=== PATIENT | male | born 1965 ===

== ENCOUNTER 2018-03-18 10:18 | Emergency (ER) | payer OTHER ==
--- NOTE | 2018-03-18 10:54 | C.PDOC ---
History Of Present Illness 53-year-old male, presents to the emergency department requesting detox for Heroin. Denies SI/HI. Time Seen by Provider: 03/18/18 10:46 Chief Complaint (Nursing): Substance Abuse History Per: Patient History/Exam Limitations: no limitations Modifying Factor(s): Narcotics Severity: Mild Past Medical History Reviewed: Historical Data, Nursing Documentation, Vital Signs Vital Signs: Last Vital Signs Temp 99.2 F 03/18/18 11:17 Pulse 74 03/18/18 11:17 Resp 20 03/18/18 11:17 BP 120/83 03/18/18 11:17 Pulse Ox 96 03/18/18 11:17 - Medical History PMH: No Chronic Diseases Surgical History: No Surg Hx Family History: States: No Known Family Hx - Social History Hx Alcohol Use: No Hx Substance Use: Yes - Immunization History Hx Tetanus Toxoid Vaccination: Yes Review Of Systems Constitutional: Negative for: Fever Cardiovascular: Negative for: Chest Pain Respiratory: Negative for: Shortness of Breath Gastrointestinal: Negative for: Nausea, Vomiting Musculoskeletal: Negative for: Back Pain Physical Exam - Physical Exam Appears: Non-toxic, No Acute Distress Skin: Warm, Dry, No Rash Head: Atraumatic Eye(s): bilateral: Normal Inspection Nose: Normal Oral Mucosa: Moist Lips: Normal Appearing Neck: Normal ROM Cardiovascular: Rhythm Regular, No Murmur Respiratory: Normal Breath Sounds, No Accessory Muscle Use Extremity: Normal ROM, No Deformity Neurological/Psych: Oriented x3, Normal Speech ED Course And Treatment O2 Sat by Pulse Oximetry: 98 Progress Note: Case discussed with emergency worker who informed patient there were no available beds in Detox. Patient was provided with list of outpatient serves to follow up with. also patient was placed on waiting list for detox bed. Discharged in stable condition Reassessment Condition: Unchanged Medical Decision Making Medical Decision Making: Patient evaluated by crisis. There are no male detox beds available. Pt will be educated on pre-screening process, and placed on waiting list. He was given a list of other detox facilities. All questions answered. Disposition Counseled Patient/Family Regarding: Diagnosis, Need For Followup - Disposition Referrals: [facility] [Outside] [facility] [Outside] [facility] [Outside] [facility] [Outside] Disposition: HOME/ ROUTINE Disposition Time: 11:00 Condition: STABLE Additional Instructions: Follow up with outpatient services for further evaluation Instructions: Drug Abuse and Drug Addiction (DC), Opioid Use Disorder Forms: [facility] (Burkinan) - POA Present On Arrival: None - Clinical Impression Clinical Impression: Drug abuse, Drug dependence - Scribe Statement The provider has reviewed the documentation as recorded by the Scribe (Marylou Dubon) All medical record entries made by the Scribe were at my direction and personally dictated by me. I have reviewed the chart and agree that the record accurately reflects my personal performance of the history, physical exam, medical decision making, and the department course for this patient. I have also personally directed, reviewed, and agree with the discharge instructions and disposition.
[2018-03-18 11:18] VITALS: BP 120/83; PULSE 74; RESP 20; TEMP 99.2
[2018-03-18 16:58] VITALS: O2SAT 98
== END 2018-03-18 11:18 | disposition home or self-care (01) ==
LOC: C.ER 10:18
DX: F19.20 Other psychoactive substance dependence, uncomplicated (principal)

== ENCOUNTER 2018-04-01 07:22 | Emergency (ER) | payer SELFPAY ==
[2018-04-01 07:27] VITALS: BP 126/84; PULSE 90; RESP 18; TEMP 98.1; O2SAT 100
[2018-04-01] MEDS ORDERED: Tmp-Smz 800 mg-160 mg DS Tab PO STA (08:02)
--- NOTE | 2018-04-01 08:07 | C.PDOC ---
History Of Present Illness 53 y/o male with history of IVDA presents to ED with c/o abscess to right forearm for 6 days. Patient state area opened and drained prior to arrival and reports last drug use was 5 days ago. Patient denies fever, chills or any other complaints at this time. Time Seen by Provider: 04/01/18 07:29 Chief Complaint (Nursing): Abnormal Skin Integrity History Per: Patient History/Exam Limitations: no limitations Onset/Duration Of Symptoms: Days Current Symptoms Are (Timing): Still Present Past Medical History Reviewed: Historical Data, Nursing Documentation, Vital Signs Vital Signs: Last Vital Signs Temp 98.1 F 04/01/18 07:25 Pulse 90 04/01/18 07:25 Resp 18 04/01/18 07:25 BP 126/84 04/01/18 07:25 Pulse Ox 100 04/01/18 16:42 - Medical History PMH: No Chronic Diseases Surgical History: No Surg Hx Family History: States: No Known Family Hx - Social History Hx Alcohol Use: No Hx Substance Use: Yes - Immunization History Hx Tetanus Toxoid Vaccination: Yes Review Of Systems Constitutional: Negative for: Fever, Chills Gastrointestinal: Negative for: Nausea, Vomiting Skin: Positive for: Other (abscess) Physical Exam - Physical Exam Appears: Non-toxic, No Acute Distress Skin: Warm, Dry, Other (redness area to right forearm, draining serial sanguenous ) Head: Atraumatic, Normacephalic Eye(s): bilateral: Normal Inspection Oral Mucosa: Moist Cardiovascular: Rhythm Regular Respiratory: Normal Breath Sounds, No Rales, No Rhonchi, No Wheezing Extremity: Normal ROM, Capillary Refill (<2 seconds), No Deformity Neurological/Psych: Oriented x3, Normal Speech, Normal Cognition Gait: Steady ED Course And Treatment O2 Sat by Pulse Oximetry: 100 (RA) Pulse Ox Interpretation: Normal Progress Note: Patient started on antibiotics and advised to return to ED if symptoms worsen. Wound cleaned and DSD applied. Treated with bactrim PO Reassessment Condition: Unchanged Disposition Counseled Patient/Family Regarding: Diagnosis, Need For Followup - Disposition Referrals: 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 - Scribe Statement The provider has reviewed the documentation as recorded by the Carlos Garcia All medical record entries made by the Carlos were at my direction and personally dictated by me. I have reviewed the chart and agree that the record accurately reflects my personal performance of the history, physical exam, medical decision making, and the department course for this patient. I have also personally directed, reviewed, and agree with the discharge instructions and disposition.
[2018-04-01] MEDS ORDERED: Tmp-Smz 800 mg-160 mg DS Tab ONE (08:15)
== END 2018-04-01 08:22 | disposition home or self-care (01) ==
LOC: C.ER 07:22
DX: L03.113 Cellulitis of right upper limb (principal); F19.10 Other psychoactive substance abuse, uncomplicated

== ENCOUNTER 2018-04-26 08:30 | Emergency (ER) | payer OTHER ==
[2018-04-26 08:41] VITALS: RESP 18
--- NOTE | 2018-04-26 10:58 | US ---
Date of service: 04/26/2018 HISTORY: s/p trauma TECHNIQUE: Realtime sonography through the scrotum with color and doppler flow. COMPARISON: None Available. FINDINGS: RIGHT TESTICLE: Measures 3.8 x 2.0 x 2.8 cm. Normal echotexture and flow. There is a 2 mm cyst in the upper pole. RIGHT EPIDIDYMIS: Epididymal head measures 0.9 x 0.9 x 1.0 cm. There is a normal echotexture with normal flow. LEFT TESTICLE: Measures 4.3 x 1.7 x 3.0 cm. Normal echotexture and flow. LEFT EPIDIDYMIS: Epididymal head measures 1.0 x 0.9 x 0.8 cm. There is a 4 mm and 2 mm cyst in the head of the epididymis. Normal echotexture with normal flow. HYDROCELE: None. VARICOCELE: None. OTHER FINDINGS: None. IMPRESSION: No acute findings. No testicular torsion. 2 mm simple cyst in the upper pole of the right testicle. Subcentimeter cysts in the head of the left epididymis.
[2018-04-26 11:22] VITALS: TEMP 98.3; O2SAT 97
--- NOTE | 2018-04-26 12:41 | RAD ---
PROCEDURE: Left Hip X-ray Radiographs. HISTORY: r/o fx COMPARISON: None. FINDINGS: BONES: The pelvic ring is intact. There is deformity in the left femoral head.. Bone alignment and mineralization are normal. JOINTS: Normal. SOFT TISSUES: Normal. OTHER FINDINGS: None. IMPRESSION: Deformity in the left femoral head could be related to old fracture. No acute displaced fracture or dislocation. Please note occult fractures cannot be excluded on plain radiographs. If there is a persistent clinical concern, an MRI of the hip may be performed for further evaluation.
[2018-04-26 13:29] VITALS: BP 125/68; PULSE 83
--- NOTE | 2018-04-26 16:19 | C.PDOC ---
History Of Present Illness 53 year old male presents to the emergency department with complaints of left groin and hip pain for one week. Patient states that he might have fallen but he is unsure. He denies hitting his head, or any other complaints at this time. Patient states that [place] [facility] [place] x[place]rays done which were negative for hip fracture. Chief Complaint (Nursing): Groin Pain History Per: Patient History/Exam Limitations: no limitations Onset/Duration Of Symptoms: Other (one week) Current Symptoms Are (Timing): Still Present - Hip Description Of Injury: Other (unsure of falling) Past Medical History Reviewed: Historical Data, Nursing Documentation, Vital Signs Vital Signs: Last Vital Signs Temp 98.3 F 04/26/18 11:15 Pulse 83 04/26/18 13:27 Resp 18 04/26/18 13:27 BP 125/68 04/26/18 13:27 Pulse Ox 97 04/26/18 16:26 - Medical History PMH: No Chronic Diseases Surgical History: No Surg Hx Family History: States: No Known Family Hx - Social History Hx Alcohol Use: No Hx Substance Use: Yes - Immunization History Hx Tetanus Toxoid Vaccination: Yes Hx Influenza Vaccination: No Hx Pneumococcal Vaccination: No Review Of Systems Musculoskeletal: Positive for: Other (left groin pain, left hip pain) Neurological: Negative for: Weakness, Numbness Physical Exam - Physical Exam Appears: Non-toxic, No Acute Distress Skin: Warm, Dry Head: Atraumatic, Normacephalic Eye(s): bilateral: Normal Inspection Neck: Normal, Supple Chest: Symmetrical, No Tenderness Cardiovascular: Rhythm Regular, No Murmur Respiratory: Normal Breath Sounds Extremity: Tenderness (diffuse left hip/groin tenderness) Pulses: Left Dorsalis Pedis: Normal, Right Dorsalis Pedis: Normal Neurological/Psych: Oriented x3, Normal Speech, Normal Cognition ED Course And Treatment O2 Sat by Pulse Oximetry: 97 (RA) Pulse Ox Interpretation: Normal - Other Rad XR Left Hip X-Ray: Viewed By Me, Read By Radiologist Interpretation: IMPRESSION: Deformity in the left femoral head could be related to old fracture. No acute displaced fracture or dislocation. Please note occult fractures cannot be excluded on plain radiographs. If there is a persistent clinical concern, an MRI of the hip may be performed for further evaluation. - CT Scan/US US Testicular Other Rad Studies (CT/US): Read By Radiologist, Radiology Report Reviewed CT/US Interpretation: IMPRESSION: No acute findings. No testicular torsion. 2 mm simple cyst in the upper pole of the right testicle. Subcentimeter cysts in the head of the left epididymis. Progress Note: Plan: XR Left Hip. US Testicular. Upon asking the patient, he states that he has had chronic hip pain for "quite some time", and has been using crutches for "quite some time" Disposition - Disposition Referrals: [facility] [Outside] [facility] [Outside] Rob Hernandez MD [Staff Provider] - Disposition: HOME/ ROUTINE Disposition Time: 12:50 Condition: GOOD Additional Instructions: JU GONZALEZ, thank you for letting us take care of you today. The emergency medical care you received today was directed at your acute symptoms. If you were prescribed any medication, please fill it and take as directed. It may take several days for your symptoms to resolve. Return to the Emergency Department if your symptoms worsen, do not improve, or if you have any other problems. Please contact your doctor or call one of the physicians/clinics you have been referred to that are listed on the Patient Visit Information form that is included in your discharge packet. Bring any paperwork you were given at discharge with you along with any medications you are taking to your follow up visit. Our treatment cannot replace ongoing medical care by a primary care provider outside of the emergency department. Thank you for allowing the [facility] team to be part of your care today. The x-ray shows an old fracture, but not a new one from your recent fall. Please follow up with our clinic and the orthopedic doctor in 2-3 days for re- evaluation and further management. Prescriptions: Ibuprofen [Motrin] 600 mg PO Q6 PRN #20 tab PRN Reason: Pain, Moderate (4-7) Instructions: Hip Pain (DC) Forms: [employer] (Canadian) - Clinical Impression Clinical Impression: Arthritis of left hip - Scribe Statement The provider has reviewed the documentation as recorded by the Scribe (Jhony Marshall) Provider Attestation: All medical record entries made by the Scribe were at my direction and personally dictated by me. I have reviewed the chart and agree that the record accurately reflects my personal performance of the history, physical exam, medical decision making, and the department course for this patient. I have also personally directed, reviewed, and agree with the discharge instructions and disposition.
== END 2018-04-26 13:29 | disposition home or self-care (01) ==
LOC: C.ER 08:30
DX: M13.852 Other specified arthritis, left hip (principal)

== ENCOUNTER 2018-12-30 04:19 | Emergency (ER) | payer MEDICARE, OTHER ==
[2018-12-30 04:20] VITALS: BMI 24.3
[2018-12-30 04:37] VITALS: BP 124/84; PULSE 88; RESP 16; TEMP 98; O2SAT 94
--- NOTE | 2018-12-30 05:03 | C.PDOC ---
History Of Present Illness 53 year old male brought in by [facility] after allegedly having a seizure. He did not want to come in but states he was forced to get evaluated by the [facility]. Patient reports he was seen at [facility] 2 months ago for the same and declined work up at that time. Patient states he feels fine and does not want any work up at this time, is requesting to leave. Denies weakness, headache, dizziness, nausea, or vomiting. Time Seen by Provider: 12/30/18 04:25 Chief Complaint (Nursing): Medical Clearance History Per: Patient History/Exam Limitations: no limitations Onset/Duration Of Symptoms: Hrs Current Symptoms Are (Timing): Gone Recent travel outside of the [place]: No Past Medical History Reviewed: Historical Data, Nursing Documentation, Vital Signs Vital Signs: Last Vital Signs Temp 98.0 F 12/30/18 04:34 Pulse 88 12/30/18 04:34 Resp 16 12/30/18 04:34 BP 124/84 12/30/18 04:34 Pulse Ox 94 L 12/30/18 04:34 Primary Care Provider: FAMILY PROVIDER,NO - Medical History PMH: HIV Denies: Deep Vein Thrombosis, HTN, Chronic Kidney Disease Surgical History: Denies: Pacemaker - [facility] MAGNETIC RESONANCE IMAGING (MRI) OF LEFT HIP (06/10/18) Family History: States: Unknown Family Hx - Social History Hx Alcohol Use: No Hx Substance Use: Yes - Immunization History Hx Tetanus Toxoid Vaccination: Yes Hx Influenza Vaccination: No Hx Pneumococcal Vaccination: No Review Of Systems Constitutional: Negative for: Fever, Chills Eyes: Negative for: Vision Change Cardiovascular: Negative for: Chest Pain Respiratory: Negative for: Shortness of Breath Gastrointestinal: Negative for: Nausea, Vomiting Musculoskeletal: Negative for: Neck Pain, Back Pain Neurological: Positive for: Seizures. Negative for: Weakness, Headache, Dizz iness Physical Exam - Physical Exam Appears: Well, Non-toxic, No Acute Distress, Other (No sign of injury) Skin: Normal Color, Warm Head: Atraumatic, Normacephalic Eye(s): bilateral: Normal Inspection, PERRL, EOMI Oral Mucosa: Moist Neck: Normal ROM, No Midline Cervical Tenderness, No Paracervical Tenderness, Supple Cardiovascular: Rhythm Regular Respiratory: Normal Breath Sounds, No Accessory Muscle Use, Other (Normal inspiratory effort) Gastrointestinal/Abdominal: Soft, No Tenderness Back: No Vertebral Tenderness, No Paraspinal Tenderness Extremity: Normal ROM (x4) Neurological/Psych: Oriented x3, Normal Speech, Normal Cranial Nerves, Normal Motor, Normal Sensation, Other (No focal deficit) Gait: Steady ED Course And Treatment O2 Sat by Pulse Oximetry: 94 Medical Decision Making Medical Decision Making: this patient is currently alert and oriented x 3. he does not have any signs of injury and states he does not want any further treatment or testing at this time. he has been counselled about need for follow up to evaluate cause of possible seizures. he verbalized understanding and states he would like to be discharged. 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 - Scribe Statement The provider has reviewed the documentation as recorded by the Scribángel Lam All medical record entries made by the Braydenibángel were at my direction and personally dictated by me. I have reviewed the chart and agree that the record accurately reflects my personal performance of the history, physical exam, medical decision making, and the department course for this patient. I have also personally directed, reviewed, and agree with the discharge instructions and disposition.
== END 2018-12-30 05:08 | disposition home or self-care (01) ==
LOC: C.ER 04:19
DX: Z00.00 Encounter for general adult medical examination without abnormal findings (principal)